=== PATIENT | female | born 1970 | race Caucasian/White ===

== ENCOUNTER 2017-03-02 18:27 | Emergency (ER) | payer MEDICAID, OTHER ==
[~2017-03-02] VITALS: Ht 165.1 cm; Wt 82.0 kg
[2017-03-02 18:48] VITALS: Ht 165.1 cm; Wt 82.0 kg
[2017-03-02 19:33] LABS: URINE BLOOD (Dip) POC 1+ (NEGATIVE)
[2017-03-02] MEDS ORDERED: PHEN-537 PO (20:02)
[2017-03-02] MEDS ORDERED: CEPH-443 PO (20:02)
--- NOTE | 2017-03-02 20:09 | ERA ---
ER Documentation Chief Complaint Date/Time DATE: 03/02/17 TIME: 20:04 Chief Complaint mid abd pain x 4 days HPI This is a 47-year-old female who presents with a chief complaint of low/pelvic abdominal pain and dysuria and hematuria. Patient's symptoms have been persisting over the past 3 days. Patient has had these symptoms before and they had resolved spontaneously. Patient has not taken any medication to relieve the symptoms. Patient denies back pain, aggravating or relieving factors, sexual activity, vaginal discharge, difficulty passing bowels or focal neurological symptoms. Patient has no other complaints at this time. ROS All systems reviewed and are negative except as per history of present illness. Medications Home Meds Active Scripts Cephalexin* (Keflex*) 500 Mg Capsule, 500 MG PO QID for 5 Days, CAP Prov:ZANE MARTINEZ PA-C 03/02/17 Phenazopyridine Hcl* (Pyridium*) 100 Mg Tab, 100 MG PO TID Y for URINARY PAIN, # 8 TAB Prov:ZANE MARITNEZ PA-C 03/02/17 Allergies Allergies: Coded Allergies: No Known Allergy (Unverified , 03/02/17) PMhx/Soc Medical and Surgical Hx: pt denies Medical Hx, pt denies Surgical Hx Hx Alcohol Use: No Hx Substance Use: No Hx Tobacco Use: No Smoking Status: Never smoker Physical Exam Vitals Vital Signs Date Time Temp Pulse Resp B/P Pulse Ox O2 Delivery O2 Flow Rate FiO2 03/02/17 18:48 98.4 62 20 128/73 100 Physical Exam Const: Well-appearing 47-year-old female. Head: Atraumatic Eyes: Normal Conjunctiva ENT: Normal External Ears, Nose and Mouth. Neck: Full range of motion..~ No meningismus. Resp: Clear to auscultation bilaterally Cardio: Regular rate and rhythm, no murmurs Abd: Moderate suprapubic tenderness. Soft, non tender, non distended. Normal bowel sounds Skin: No petechiae or rashes Back: No midline or flank tenderness. No CVA tenderness. Ext: No cyanosis, or edema Neur: Awake and alert. Neurovascularly intact bilaterally. Psych: Normal Mood and Affect Results 24 hrs Laboratory Tests Test 03/02/17 19:35 Bedside Urine pH (LAB) 7.0 Bedside Urine Protein (LAB) Negative Bedside Urine Glucose (UA) Negative Bedside Urine Ketones (LAB) Negative Bedside Urine Blood 1+ Bedside Urine Nitrite (LAB) Negative Bedside Urine Leukocyte Esterase (L Trace Procedures/MDM Patient was evaluated and worked up for suprapubic pain, hematuria and dysuria .Patient's workup included urine dip that was positive for hematuria and leukocyte esterase. Urine was negative. The current most likely diagnosis is a lower urinary tract infection. Hemorrhagic cystitis. The treatment will thus include 5 days of 500 mg of Keflex and Pyridium for pain relief. At this time I do not suspect pyelonephritis, ovarian torsion, tubo- ovarian abscess, mechanical obstruction, ectopic , hernia, appendicitis , intestinal ischemia, PID, AAA, or diverticulitis. The patients vitals are stable, and their current condition is appropriate for discharge. The patient will be given discharge instructions with return precautions. Departure Diagnosis: Primary Impression: Urinary tract infection Qualified Code: N30.01 - Acute cystitis with hematuria Additional Impression: Hemorrhagic cystitis Condition: Stable Patient Instructions: Understanding Urinary Tract Infections (UTIs) Additional Instructions: Follow up with your PCP within the next 1-3 days for a more thorough evaluation and a possible referral to a specialist. Return the the emergency department immediately if symptoms worsen or change. If you have any questions regarding medications, ask your pharmacist or us before you leave. If any adverse reactions occur while taking your medications, discontinue the treatment and return to the emergency department immediately. Take your medications as directed, and complete the entire course of treatment. ZANE MARTINEZ PA-C March 02, 2017 20:09
[2017-03-02 20:20] VITALS: BP 110/63; PULSE 66; RESP 18; TEMP 98.4
== END 2017-03-02 20:20 | disposition home or self-care (01) ==
LOC: FTE 18:27
DX: N30.01 Acute cystitis with hematuria (principal)
CPT/HCPCS: 81003; 99283